=== PATIENT | female | born 1975 | race Caucasian/White ===

== ENCOUNTER 2018-11-10 08:00 | Inpatient (IN) | payer MEDICAID ==
[2018-11-10] MEDS ORDERED: ACETAMINOPHEN 500 MG TAB PO ONE (08:20)
[2018-11-10] MEDS ORDERED: ceFAZolin 2 GM/DEXTROSE 100 ML IV ONE (08:20)
[2018-11-10] MEDS ORDERED: morphINE SR 15 MG TAB PO ONE (08:20)
[2018-11-10] MEDS ORDERED: GABAPENTIN 300 MG CAP PO ONE (08:20)
[2018-11-10] MEDS ORDERED: LR 1,000 ML IV ONE (08:22)
[2018-11-10] MEDS ORDERED: LIDOCAINE 1% 2 ML INJ ONE (08:31)
[2018-11-10 09:07] LABS: PLATELET COUNT 210 10^3/uL (150-400)
[2018-11-10] MEDS ORDERED: LIDOCAINE 1% 2 ML INJ ID PRN (09:13)
[2018-11-10] MEDS ORDERED: BUPIVACAINE 0.25% 30 ML SDV ONE (10:09)
[2018-11-10] MEDS ORDERED: THROMBIN (BOVINE) 5,000 UNIT VIAL TP ONE (10:10)
[2018-11-10] MEDS ORDERED: BACITRACIN 50,000 UNITS/10 ML SYR IRR ONE (10:10)
[2018-11-10] MEDS ORDERED: EPINEPHrine 1 MG/ML INJ ONE (10:11)
[2018-11-10] MEDS ORDERED: CHLORHEXIDINE GLUC HIBICLENS 118 ML BTL TP ONE ×2 (10:13→13:35)
--- NOTE | 2018-11-10 10:55 | PDHPUP ---
History & Physical Update H&P update statement: This history and physical update is based on an assessment of the patient which was completed after admission or registration (within 24 hours), but prior to the surgery/procedure. H&P update: H&P reviewed & patient examined, no change in patient's condition since H&P completed
--- NOTE | 2018-11-10 11:04 | PDANEPAE ---
ANE Past Medical History - Cardiovascular History Hx Hypertension: No Hx Arrhythmias: Yes Hx Chest Pain: No Hx Coronary Artery / Peripheral Vascular Disease: No Hx CHF / Valvular Disease: No Hx Palpitations: No Cardiovascular History Comment: Hx of SVT - has not seen a ground crew chief for at least 3 years, quit caffeine 3 years ago and has not had any episodes since - Pulmonary History Hx COPD: No Hx Asthma/Reactive Airway Disease: No Hx Recent Upper Respiratory Infection: No Hx Oxygen in Use at Home: No Hx Sleep Apnea: No Sleep Apnea Screening Result - Last Documented: Negative - Neurologic History Hx Cerebrovascular Accident: No Hx Seizures: No Hx Dementia: No Neurologic History Comment: hx of migraines - Endocrine History Hx Diabetes: No - Renal History Hx Renal Disorders: No - Liver History Hx Hepatic Disorders: No - Neurological & Psychiatric Hx Hx Neurological and Psychiatric Disorders: Yes Neurological / Psychiatric History Comment: anxiety - Cancer History Hx Cancer: No - Congenital Disorder History Hx Congenital Disorders: No - GI History Hx Gastrointestinal Disorders: Yes Gastrointestinal History Comment: IBS. stomach ulcers. GERD - Other Health History Other Health History: wears glasses. chronic neck pain, dysphagia - Chronic Pain History Chronic Pain: Yes (neck) - Surgical History Prior Surgeries: ACDF C4-7, 2017. tubal ligation, 1999 ANE Review of Systems Review of Systems: - Exercise capacity METS (RN): 4 METS ANE Patient History - Allergies Allergies/Adverse Reactions: hydrocodone Allergy (Verified 10/20/18 10:34) Itching - Home Medications Home Medications: Dicyclomine [Bentyl 20 MG (*)] 20 mg PO BID 10/20/18 [Last Taken 11/09/18] Multivitamins [Multivitamin (*)] 1 each PO DAILY 10/20/18 [Last Taken 11/03/18] Ranitidine HCl [Zantac] 150 mg PO DAILY 10/20/18 [Last Taken 11/09/18] oxyCODONE IR [Oxycodone Ir (*)] 10 mg PO TID 10/20/18 [Last Taken 11/10/18] traMADol [Ultram 50 mg (*)] 50 - 100 mg PO TID 10/20/18 [Last Taken 11/09/18] traZODone [traZODone 150MG (*)] 300 mg PO HS 10/20/18 [Last Taken 11/08/18] - NPO status NPO Since - Liquids (Date): 11/10/18 NPO Since - Liquids (Time): 06:00 NPO Since - Solids (Date): 11/09/18 NPO Since - Solids (Time): 18:00 - Smoking Hx Smoking Status: Former smoker - Family Anes Hx Family Hx Anesthesia Complications: none ANE Labs/Vital Signs - Labs Result Diagrams: 11/10/18 08:53 11/10/18 08:53 - Vital Signs Blood Pressure: 88/55 Heart Rate: 95 Respiratory Rate: 17 O2 Sat (%): 98 Height: 170.18 cm Weight: 47.627 kg ANE Physical Exam - Airway Neck exam: decreased ROM Mallampati Score: Class 1 - ASA Status ASA Status: II ANE Anesthesia Plan Anesthesia Plan: general endotracheal anesthesia Specialized Airway: video laryngoscope
[2018-11-10] MEDS ORDERED: MIDAZOLAM 2 MG/2 ML VIAL ONE (11:18)
[2018-11-10] MEDS ORDERED: PROPOFOL/EMULSION 500 MG/50 ML BOTTLE IV ONE (11:19)
[2018-11-10] MEDS ORDERED: fentaNYL 100 MCG/2 ML INJ ONE ×3 (11:19→17:09)
[2018-11-10] MEDS ORDERED: PROPOFOL 200 MG/20 ML VIAL ONE ×2 (11:20→15:02)
[2018-11-10] MEDS ORDERED: ROCURONIUM 50 MG/5 ML VIAL ONE (11:22)
[2018-11-10] MEDS ORDERED: METOCLOPRAMIDE 10 MG/2 ML VIAL ONE (11:22)
[2018-11-10] MEDS ORDERED: ONDANSETRON 4 MG/2 ML VIAL ONE (11:22)
[2018-11-10] MEDS ORDERED: LIDO/EPI 1% **Not for Epidural 20 ML MDV ONE (11:58)
[2018-11-10] MEDS ORDERED: ePHEDrine SULFATE 25 MG/5 ML SYR ONE (13:26)
[2018-11-10] MEDS ORDERED: oxyCODONE IR 5 MG TAB PO SCH (16:00)
[2018-11-10] MEDS ORDERED: LACTULOSE 20 GM/30 ML UDCUP PO PRN (17:03)
[2018-11-10] MEDS ORDERED: PROMETHAZINE HCL 25 MG/ML INJ IVP PRN ×2 (17:03→17:07)
[2018-11-10] MEDS ORDERED: diphenhydrAMINE 25 MG CAP PO PRN (17:03)
[2018-11-10] MEDS ORDERED: NALOXONE HCL 0.4 MG/ML INJ IVP PRN ×2 (17:03→17:07)
[2018-11-10] MEDS ORDERED: ONDANSETRON DISINTEGRATING 4 MG TAB PO PRN (17:03)
[2018-11-10] MEDS ORDERED: ONDANSETRON 4 MG/2 ML VIAL IVP PRN ×2 (17:03→17:07)
[2018-11-10] MEDS ORDERED: POLYETHYLENE GLYCOL 3350 17 GM PKT PO PRN (17:03)
[2018-11-10] MEDS ORDERED: BISACODYL 10 MG SUPP PR PRN (17:03)
[2018-11-10] MEDS ORDERED: MAGNESIUM HYDROXIDE 30 ML UDCUP PO PRN (17:03)
[2018-11-10] MEDS ORDERED: oxyCODONE IR 5 MG TAB PO PRN (17:07)
[2018-11-10] MEDS ORDERED: LR 500 ML IV PRN (17:07)
[2018-11-10] MEDS ORDERED: DEXAMETHASONE 4 MG/ML VIAL IVP PRN (17:07)
[2018-11-10] MEDS ORDERED: MEPERIDINE 25 MG/0.5 ML AMP IVP PRN (17:07)
--- NOTE | 2018-11-10 17:08 | POSTANESTH ---
Post Anesthetic Evaluation Cardiovascular Status: Normal, Stable Respiratory Status: Normal, Stable Level of Consciousness/Mental Status: Can Participate in Eval Pain Control: Adequate, Prn Tx Ordered Nausea/Vomiting Control: Adequate, Prn Tx Ordered Complications Possibly Related to Anesthesia: None Noted
[2018-11-10] MEDS: fentaNYL 100 MCG/2 ML INJ IVP PRN ×3 (17:12→17:27)
[2018-11-10] MEDS ORDERED: NS 1,000 ML IV SCH (17:15)
[2018-11-10] MEDS ORDERED: HYDROmorphONE/DILAUDID 2 MG/ML INJ ONE (17:18)
[2018-11-10] MEDS: HYDROmorphONE/DILAUDID 2 MG/ML INJ IVP PRN ×5 (17:20→18:10)
[2018-11-10] MEDS ORDERED: DIAZEPAM 5 MG/ML 1 ML SYR ONE (17:33)
[2018-11-10] MEDS: DIAZEPAM 5 MG/ML 1 ML SYR IVP PRN ×2 (17:33→17:57)
--- NOTE | 2018-11-10 17:44 | POSTOPPROG ---
Post Op Note Date of Operation: 11/10/18 Surgeon: Angel Ramos Kennel Supervisor: Rochelle Oliva PA-C Pre-op Diagnosis: Pseudoarthrosis, cervicalgia, dysphagia Post-op Diagnosis: Pseudoarthrosis, cervicalgia, dysphagia Procedure: Removal of Anterior cervical plate, followed by C4-T1 intrumented fusion Inf/Abcess present in the surg proc area at time of surgery?: No Depth: Organ Space Complications: None observed Drains: Jace Oropeza (ASHER X 2 to full suction) SOAP Progress Note Assessment/Plan: Assessment: Plan: 11/10/18 17:41 S: Patient in PACU. Stable with expected neck pain and incisional pain and a sore throat. O: NAD, VSS Awake, alert, following commands Hard cervical collar in place No induration CHO x 4 BLE 5/5= Sensation intact to lt touch Anterior and posterior incisions c/d/i ASHER X2 A: 43 yo female sp removal of anterior cervical plate, followed by C4-T1 PSF for Pseudoarthrosis, cervicalgia, dysphagia P: -Admit to SDU for pain control issues- may need precedex, patient very opioid tolerant preop -Optimize pain management- Valium, Oxy, Tramodol- Dilaudid POLYMERIZATION HELPER if needed -Q4 hour neuro checks -ASHER X 2 to full suction -Remove catheter in am -PT/OT/FURNACE AND WASH EQUIPMENT OPERATOR -Hard collar at all times except to shower -DVT: TEDs, SCDs, Lovenox POD #2 -Seen by Dr. Ramos in PACU Objective: Vital Signs Temp Pulse Resp BP Pulse Ox 36.9 C 95 24 H 117/73 100 11/10/18 08:41 11/10/18 11:04 11/10/18 17:20 11/10/18 17:20 11/10/18 17:20 Laboratory Results 11/10/18 08:53 11/10/18 08:53
[2018-11-10] MEDS ORDERED: oxyCODONE IR 5 MG TAB ONE (17:48)
--- NOTE | 2018-11-10 18:25 | GOP ---
DATE OF OPERATION: 11/10/2018 SURGEON: Angel Ramos MD NEUROSURGEON: Angel Ramos MD. ANESTHESIA: General endotracheal. All neurophysiologic monitoring was stable throughout the case. PREOPERATIVE DIAGNOSIS: Status post C4-7 anterior cervical diskectomy and fusion with loose/broken h ardware and pseudoarthrosis at C4-5 and C6-7 with swallowing dysfunction. POSTOPERATIVE DIAGNOSIS: Status post C4-7 anterior cervical diskectomy and fusion with loose/broken hardware and pseudoarthrosis at C4-5 and C6-7 with swallowing dysfunction. PROCEDURE PERFORMED: Stage I: 1. Exploration of anterior spinal fusion. 2. Removal of anterior spinal instrumentation. Stage II. 1. C4-T1 posterior spinal fusion. 2. Posterior arthrodesis C3-4, 4-5, 5-6, 6-7, C7-T1. 3. Placement of pedicle screw fixation and lateral mass screws C4-C7. 4. Use of allograft, BMP and cancellous bone chips. 5. Use of O arm/Stealth stereotactic navigation for screw placement. 6. Intraoperative neurophysiologic monitoring, including somatosensory evoked potentials, motor evok ed potentials, and EMG. FINDINGS: Successful removal of hardware and posterior spinal fusion C4-T1. SPECIMENS: There were no specimens. ESTIMATED BLOOD LOSS: 100 cc. INDICATIONS: This is a 43-year-old woman who had previously had a C4-7 ACDF by another surgeon about 2 years ago. She has had significant neck pain since that time, and presented to my office with new imaging. This showed broken screws at C4 and C7 with loosening of the plate and pseudoarthrosis at C4-5 and C6-7. There was no clear foraminal disease within the spinal canal, but given her neck pain and this pseudoarthrosis as well as her significant swallowing dysfunction which was thought to be f rom the proud plate in the front, we elected to remove her plate and fuse her posteriorly C4-T1. I a sked Dr. Dias to help with the anterior portion of the procedure given the propensity for swallowi ng dysfunction and possible esophageal injury. DESCRIPTION OF PROCEDURE: After informed consent was obtained from the patient, the patient was brou ght to the operating room, was placed in a supine position on the operating table. A formal time-out was performed, identifying the patient by name, medical record number and date of . Preoperati ve antibiotics were given. The endotracheal tube was placed and general endotracheal anesthesia was smoothly induced. The patient's head was extended onto a horseshoe headrest and turned slightly to t he left side. A transverse incision was marked in a skin crease on the right side equal with her pre vious incision. 10 cc of 0.25% Marcaine with epinephrine infiltrated in the skin for hemostasis. Dr Geetha Dias then performed the exposure portion of the procedure where the skin incision was made. The subcutaneous tissues and platysma were opened and the avascular plane between the midline structures and the sternocleidomastoid was carefully dissected. The trachea and esophagus were retracted somew hat medially and a lot of scar tissue was visualized in the prevertebral space. This scar tissue was opened and clearly there was some inflammatory fluid due to the plate being loose. The scar tissue was carefully divided and the plate was clearly identified. Two of the screws, 1 at C5 and 1 at C6 w ere proud above the locking mechanism of the plate and these may have been causing some of the esopha geal problems that she was having. Carefully, the locking caps were loosened and the screws were rem queta. One of the screws at C4 and C7 each were broken and the tips were left within the vertebral kristina dy as I did not see any reason to todd after these. Once the screws were removed, the plate was loo se and the plate was removed completely. The wound was copiously irrigated using bacitracin irrigati on and some bipolar electrocautery was used to control all bleeders. At this point, there was minima l further oozing from the scar tissue. A 10-Paraguayan silastic drain was placed in the prevertebral spa ce. The platysma was closed using interrupted 3-0 Vicryl and the deep dermis was closed using interr upted 3-0 Vicryl. The skin was closed using Dermabond. Sterile dressings were placed. At this point, the drapes were removed and the head was placed in the Wood pin. Then we were pre pared for the 2nd stage of the procedure. The patient was turned into the prone position on the Jace table. All appropriate pressure points were padded and checked. The head and neck were kept in a neutral position and the posterior cervic al area was sterilized. This was then prepped and draped in the normal sterile fashion. A midline s kin incision was made down to the T1 spinous process and the subcutaneous tissues were dissected usin g monopolar electrocautery. The fascia was opened in the midline. The paraspinous muscles were take n down from the spinous processes and lamina from C4 down to T1. The lateral masses and the transver se process of T1 were completely exposed. At this point, a navigation frame was placed on the C7 spi nous process. An O-arm spin was obtained showing the relevant anatomy from C4-T1. Starting on the l eft side at C7, the pedicle entry points at C7 and T1 were identified and decorticated using the high -speed drill. All the lateral mass entry points were also identified to be in line with the C7 and T 1 screws. Once the entry points of the pedicles were identified, the drill was used to drill each pe dicle which was then tapped with a 3 mm tap. At C7, a 4.0 x 22 mm Medtronic infinity screw was place d under navigation and at T1, a 4.5 x 28 mm screw was placed again using navigation. The lateral mas s trajectories were then drilled on the right side using a cephalad and lateral trajectory, keeping a way from the vertebral artery. Bicortical screws were obtained. We then did the pedicle screws at C 7 on T1 on the right side, placing again a 4.0 x 22 mm screw at C7 and a 4.5 x 28 mm screw at T1. Us ing the same process, the cephalad and lateral trajectories for the lateral mass screws at C4, 5 and 6 were drilled and 3.5 x 14 mm screws were placed in each lateral mass. A 2nd O-arm spin was obtaine d to check the screw placement. All neurophysiologic monitoring remained stable. On inspection of t he 2nd O arm spin, the left-sided C7 screw was placed slightly laterally in the pedicle with a slight anterior breach. Although this appeared to be fairly solid, I did re position the screw more medial ly into the vertebral body to have better purchase. This also showed the right-sided C4 lateral mass screw was breaching into the joint with an extremely small lateral mass at that level. I removed th e screw and unfortunately, the lateral mass was small enough that there was really no other trajector y to place a lateral mass screw at that level. The pedicle was also too small to place a good pedicl e screw completely through the pedicle because the vertebral artery was slightly medially directed. I was able to drill into the proximal portion of the pedicle in line with the pedicle and we were the n able to place a 3.5 x 10 mm screw at this level, which got solid bone purchase. Another O arm spin was obtained again showing the screws to be in good placement without any breach of the canal or the vertebral artery. At this point, all the screw heads were aligned and on the left side a 60 mm deonte nium suly was placed and on the right side a 70 mm titanium suly was placed and these were locked in pl esa using the locking caps. The lateral masses were then completely decorticated and a combination o f BMP and allograft cancellous bone chips were used for posterolateral arthrodesis from C4-T1. After these were placed, we checked all the locking caps to be sure they were tightened to the recommended torque per the talent sourcer. The wound was copiously irrigated using bacitracin irrigation. A 10-F rench PTC drain was placed in the subfascial space. The fascia was closed using interrupted 0 Vicryl , the deep dermis was closed using interrupted 2-0 Vicryl. The skin was closed using a subcuticular 4-0 Monocryl. Steri-Strips were placed over the wound. Sterile dressings were placed. The patient was removed from the Wood pins. She was extubated in the operating room and was transferred to [facility] PACU in stable condition. There were no operative complications. I was scrubbed and present for the entire procedure. All sponge and needle counts were correct at the end of the case. CO SURGEON FOR STAGE I: Autumn Dias MD. AIRPORT OPERATIONS DUTY MANAGER FOR STAGE II: Rochelle Dickerson PA-C. FLUIDS AND URINE OUTPUT: Per the anesthesia record. DRAINS: Prevertebral and subfascial ASHER. /[id number]/MODL
[2018-11-10] MEDS: HYDROmorphONE/DILAUDID 1 MG/ML INJ IVP PRN (19:04)
[2018-11-10] MEDS: traMADol 50 MG TAB PO SCH ×2 (19:17→22:50)
[2018-11-10] MEDS: HYDROmorphONE/DILAUDID 6 MG/30 ML PCA IV PRN (19:18)
[2018-11-10] MEDS: DIAZEPAM 5 MG TAB PO PRN (19:18)
[2018-11-10] MEDS: oxyCODONE IR 5 MG TAB PO SCH (21:10)
[2018-11-10] MEDS: FAMOTIDINE 20 MG TAB PO SCH (21:11)
[2018-11-10] MEDS: ACETAMINOPHEN 500 MG TAB PO SCH (21:11)
[2018-11-10] MEDS: SENNOSIDES/DOCUSATE SODIUM TAB PO SCH (21:12)
[2018-11-10] MEDS: DICYCLOMINE 20 MG TAB PO SCH (21:54)
[2018-11-10] MEDS: POLYETHYLENE GLYCOL 3350 17 GM PKT PO SCH (22:51)
[2018-11-10] MEDS ORDERED: DEXMEDETOMIDINE HCL 400 MCG in NS 100 ML IV SCH (23:30)
[2018-11-11] MEDS: HYDROmorphONE/DILAUDID 6 MG/30 ML PCA IV PRN ×3 (01:25→21:39)
[2018-11-11] MEDS: DIAZEPAM 5 MG TAB PO PRN ×2 (02:41→16:11)
[2018-11-11] MEDS: ACETAMINOPHEN 500 MG TAB PO SCH ×3 (05:33→21:43)
[2018-11-11] MEDS: HYDROmorphONE/DILAUDID 1 MG/ML INJ IVP PRN (08:42)
[2018-11-11] MEDS ORDERED: FAMOTIDINE 20 MG TAB PO SCH (09:00)
--- NOTE | 2018-11-11 09:16 | NEUSURGPN ---
Assessment/Plan: Assessment: Plan: 11/10/18 17:41 S: Doing ok, has a lot of posterior neck pain and a sore throat. Able to swallow water ok but has not eaten anything solid yet. O: NAD, VSS Awake, alert, following commands Hard cervical collar in place No induration CHO x 4 BLE 5/5= Sensation intact to lt touch Anterior and posterior incisions c/d/i ASHER X2- anterior 50, posterior 130 output A: 43 yo female POD #1 sp removal of anterior cervical plate, followed by C4-T1 PSF for Pseudoarthrosis, cervicalgia, dysphagia P: -Neuro: OVerall doing ok, BP soft but asymptomatic. Ok to transfer to floor -Optimize pain management- Valium, Oxy, will DC PRIVATE SECURITY GUARD and transition to oral dilaudid if needed -Q4 hour neuro checks -ASHER X 2 to full suction- will remove anterior ASHER today -Remove catheter in am -PT/OT/BUNG DRIVER -Hard collar at all times except to shower -DVT: TEDs, SCDs, Lovenox POD #2 -Seen by Dr. Ramos as well Catheter Insertion Date: 11/10/18 - Physician Discussed Patient with Dr.: Ramos Patient Seen by : Rachel Neurosurgery Physical Exam - Vitals, I&O, Labs I and O 11/10/18 11/11/18 11/12/18 05:59 05:59 05:59 Intake Total 4023 Output Total 3015 Balance 1008 Weight 47.627 kg Intake: Oral (ml) 400 IV Intake (ml) 3596 IV Infused (ml) 27 Dexmedetomidine HCl 400 27 mcg In Ns 100 ml @ Per Protocol IV CONT LYNDON Rx#: [id number] Output: Urine (ml) 2700 Catheter 2700 Estimated Blood Loss (ml) 100 ASHER Drain Output (ml) 215 #1 Anterior Neck Jace 50 Oropeza #2 Posterior Neck Jace 165 Oropeza Vital Signs Temp Pulse Resp BP Pulse Ox 37.3 C 79 13 85/56 L 100 11/11/18 07:42 11/11/18 07:42 11/11/18 07:42 11/11/18 07:42 11/11/18 07:42 Laboratory Results 11/11/18 05:10 11/10/18 08:53 ICD10 Worksheet Patient Problems: Problems Problem Status Onset Pseudoarthrosis of cervical spine Acute - ICD10 Problem Qualifiers (1) Pseudoarthrosis of cervical spine
[2018-11-11] MEDS: traMADol 50 MG TAB PO SCH ×2 (09:25→15:17)
[2018-11-11] MEDS: FAMOTIDINE 20 MG TAB PO SCH ×2 (09:25→21:44)
[2018-11-11] MEDS: POLYETHYLENE GLYCOL 3350 17 GM PKT PO SCH ×3 (09:26→21:45)
[2018-11-11] MEDS: DICYCLOMINE 20 MG TAB PO SCH ×2 (09:26→21:44)
[2018-11-11] MEDS: oxyCODONE IR 5 MG TAB PO SCH ×3 (09:26→21:45)
[2018-11-11] MEDS: SENNOSIDES/DOCUSATE SODIUM TAB PO SCH ×2 (09:26→21:43)
[2018-11-11] MEDS: MULTIVITAMINS 1 EACH TAB PO SCH (09:26)
--- NOTE | 2018-11-11 10:57 | PDMN ---
Medical Necessity Medical necessity: [facility] S330 Cervical fusion posterior: 43 yo s/p C4-T1 posterior and anterior cervical fusion, [facility] only
[2018-11-11] MEDS: HYDROmorphONE/DILAUDID 2 MG TAB PO PRN (12:05)
[2018-11-11] MEDS ORDERED: traMADol 50 MG TAB PO PRN (17:00)
[2018-11-12] MEDS: ACETAMINOPHEN 500 MG TAB PO SCH ×3 (05:26→21:08)
[2018-11-12] MEDS: HYDROmorphONE/DILAUDID 2 MG TAB PO PRN ×2 (07:22→11:34)
[2018-11-12] MEDS: DIAZEPAM 5 MG TAB PO PRN (07:42)
--- NOTE | 2018-11-12 08:11 | NEUSURGPN ---
Date of Surgery: 11/10/18 Post Op Day: 2 Assessment/Plan: 43 yo female POD #2 sp removal of anterior cervical plate, followed by C4-T1 PSF for Pseudoarthrosis, cervicalgia, dysphagia P: -Neuro stable -Pain control, off of MOLDING SUPERVISOR -Q4 hour neuro checks -ASHER X 1 posterior: continue, Anterior ASHER removed on 11/11 -PT/OT/WET PROCESS OPERATOR evals pending -Hard collar at all times except to shower -DVT: TEDs, SCDs, Lovenox POD #2 -Discharge planning Discussed with Dr. Ramos. Subjective: Having burning pain at the top of the shoulders and achiness in the arms. Objective: Awake. Alert. PERRL. EOMI Muscle strength full at 5/5 Incisions with dressings c/d/i Catheter Insertion Date: 11/10/18 - Physician Discussed Patient with : Rachel Neurosurgery Physical Exam - Vitals, I&O, Labs I and O 11/11/18 11/12/18 11/13/18 05:59 05:59 05:59 Intake Total 4023 1050 Output Total 3015 45 Balance 1008 1005 Weight 47.627 kg Intake: Oral (ml) 400 550 IV Intake (ml) 3596 IV Infused (ml) 27 500 Dexmedetomidine HCl 400 27 mcg In Ns 100 ml @ Per Protocol IV CONT LYNDON Rx#: [id number] Ns 1,000 ml @ 75 mls/hr 500 IV CONT LYNDON Rx#: [id number] Output: Urine (ml) 2700 Catheter 2700 Estimated Blood Loss (ml) 100 ASHER Drain Output (ml) 215 45 #1 Anterior Neck Jace 50 5 Oropeza #2 Posterior Neck Jace 165 40 Oropeza Other: Number of Voids Toilet 1 Vital Signs Temp Pulse Resp BP Pulse Ox 37.4 C 102 H 17 117/65 97 11/12/18 07:19 11/12/18 07:19 11/12/18 07:19 11/12/18 07:19 11/12/18 07:19 Laboratory Results 11/11/18 05:10 11/10/18 08:53 ICD10 Worksheet Patient Problems: Problems Problem Status Onset Pseudoarthrosis of cervical spine Acute
[2018-11-12] MEDS: SENNOSIDES/DOCUSATE SODIUM TAB PO SCH ×2 (09:21→21:08)
[2018-11-12] MEDS: ENOXAPARIN 40 MG/0.4 ML SYR SC SCH (09:21)
[2018-11-12] MEDS: MULTIVITAMINS 1 EACH TAB PO SCH (09:22)
[2018-11-12] MEDS: oxyCODONE IR 5 MG TAB PO SCH ×3 (09:22→21:09)
[2018-11-12] MEDS: POLYETHYLENE GLYCOL 3350 17 GM PKT PO SCH ×3 (09:22→21:08)
[2018-11-12] MEDS: DICYCLOMINE 20 MG TAB PO SCH ×2 (09:22→21:08)
[2018-11-12] MEDS: FAMOTIDINE 20 MG TAB PO SCH ×2 (09:22→21:08)
--- NOTE | 2018-11-12 16:53 | ASMTCMCOM ---
CM Note CM Note Notes: Pt had planned spinal surgery, resides with adult children. PT rec home/outpatient, LANDSCAPING MANAGER rec home. Anticipate pt will d/c independent when medically stable. CM to follow pt progress. Date Signed: 11/12/2018 04:53 PM Electronically Signed By:LAST Mtathews
[2018-11-13] MEDS: HYDROmorphONE/DILAUDID 2 MG TAB PO PRN ×2 (02:53→13:12)
[2018-11-13] MEDS: DIAZEPAM 5 MG TAB PO PRN ×2 (02:54→21:07)
[2018-11-13] MEDS: ACETAMINOPHEN 500 MG TAB PO SCH ×3 (05:53→21:02)
[2018-11-13] MEDS: MULTIVITAMINS 1 EACH TAB PO SCH (08:50)
[2018-11-13] MEDS: DICYCLOMINE 20 MG TAB PO SCH ×2 (08:50→21:04)
[2018-11-13] MEDS: SENNOSIDES/DOCUSATE SODIUM TAB PO SCH ×2 (08:50→21:03)
[2018-11-13] MEDS: oxyCODONE IR 5 MG TAB PO SCH ×3 (08:50→21:10)
[2018-11-13] MEDS: FAMOTIDINE 20 MG TAB PO SCH ×2 (08:50→21:03)
[2018-11-13] MEDS: ENOXAPARIN 40 MG/0.4 ML SYR SC SCH (08:51)
[2018-11-13] MEDS: POLYETHYLENE GLYCOL 3350 17 GM PKT PO SCH ×3 (09:51→21:04)
--- NOTE | 2018-11-13 10:56 | SOAPPROG ---
SOAP Progress Note Assessment/Plan: Assessment: Assessment/Plan: 43 yo female POD #3 sp removal of anterior cervical plate, followed by C4-T1 PSF for Pseudoarthrosis, cervicalgia, dysphagia. Doing better. Pain controlled. High narcotic tolerance P: -Neuro stable -Q4 hour neuro checks -PT/OT/METROLOGY MANAGER -Hard collar at all times except to shower -DVT: TEDs, SCDs, Lovenox POD #2 -Discharge planning Subjective: Having burning pain at the top of the shoulders and achiness in the left arm which is chronic and. Objective: Awake. Alert. PERRL. EOMI Muscle strength full at 5/5 Incisions with dressings c/d/i x 2 11/13/18 10:53 Subjective: Awake, alert, pain controlled. No overnight issues. Tolerating soft texture diet. Ongoing burning pain in top of shoulders. Objective: Vital Signs Temp Pulse Resp BP Pulse Ox 36.9 C 133 H 14 100/63 81 L 11/13/18 07:30 11/13/18 08:53 11/13/18 07:30 11/13/18 07:30 11/13/18 09:00 Laboratory Results 11/11/18 05:10 11/10/18 08:53 11/12/18 11/13/18 11/14/18 05:59 05:59 05:59 Intake Total 1050 2250 Output Total 45 Balance 1005 2250 Neuro: CHO, sens +Lt follows commands Post op xrays show well positioned hardware. ICD10 Worksheet Patient Problems: Problems Problem Status Onset Pseudoarthrosis of cervical spine Acute
--- NOTE | 2018-11-13 11:24 | PDHOMEO2F ---
Home Oxygen Face to Face Home Orders: I certify that a physician or a nurse practitioner or physician's assistant branch operations manager has had a [id number] encounter with this patient on the date of this order due to the diagnosis listed, which relates to the primary reason the patient requires home oxygen. Alternative treatments have been tried, or considered, and deemed ineffective. It is anticipated that supplemental oxygen will result in improvement with treatment. Home oxygen qualifying diagnosis: post op hypoxemia SpO2 on room air (%): 85 Frequency of home oxygen needed: continuous Home oxygen liters per minute: 1 Home oxygen delivery device: nasal cannula Concentrator: No E-tanks for mobility and back up: Yes If ordering portable O2, is the patient mobile in the home?: Yes I certify that, based on these findings, the home oxygen is medically necessary for this patient for the following length of time. Length of time home oxygen needed: 1 month
[2018-11-14] MEDS: HYDROmorphONE/DILAUDID 2 MG TAB PO PRN ×3 (00:55→13:00)
[2018-11-14] MEDS: DIAZEPAM 5 MG TAB PO PRN ×2 (04:14→13:00)
[2018-11-14] MEDS: ACETAMINOPHEN 500 MG TAB PO SCH ×2 (05:38→12:59)
[2018-11-14 07:43] VITALS: BP 92/60
[2018-11-14] MEDS: oxyCODONE IR 5 MG TAB PO SCH (09:14)
[2018-11-14] MEDS: SENNOSIDES/DOCUSATE SODIUM TAB PO SCH (09:17)
[2018-11-14] MEDS: DICYCLOMINE 20 MG TAB PO SCH (09:18)
[2018-11-14] MEDS: MULTIVITAMINS 1 EACH TAB PO SCH (09:18)
[2018-11-14] MEDS: FAMOTIDINE 20 MG TAB PO SCH (09:18)
[2018-11-14] MEDS: ENOXAPARIN 40 MG/0.4 ML SYR SC SCH (09:19)
[2018-11-14] MEDS: POLYETHYLENE GLYCOL 3350 17 GM PKT PO SCH (09:19)
--- NOTE | 2018-11-14 09:22 | SOAPPROG ---
SOAP Progress Note Assessment/Plan: Assessment: Assessment/Plan: 43 yo female POD #4 sp removal of anterior cervical plate, followed by C4-T1 PSF for Pseudoarthrosis, cervicalgia, dysphagia. Doing better. Pain controlled. High narcotic tolerance. Pt still dropping into upper 80's when ambulating. Currently 94% on room air in her chair. RN encouraging IS She refuses to pay out of pocket for home Oxygen. P: -Neuro stable -PT/OT/CORPORATE TREASURY ANALYST. swallowing fine this AM -Hard collar at all times except to shower -DVT: TEDs, SCDs, on Lovenox -Discharge planning Subjective: In bedside chair. Pain controlled. Awake and alert. Objective: Awake. Alert. PERRL. EOMI Muscle strength full at 5/5 Incisions with dressings c/d/i x 2 11/14/18 09:21 11/14/18 09:22 Objective: Vital Signs Temp Pulse Resp BP Pulse Ox 36.6 C 98 16 92/60 L 94 11/14/18 07:42 11/14/18 07:42 11/14/18 07:42 11/14/18 07:42 11/14/18 07:42 Laboratory Results 11/11/18 05:10 11/10/18 08:53 11/13/18 11/14/18 11/15/18 05:59 05:59 05:59 Intake Total 2250 0 Balance 2250 0 ICD10 Worksheet Patient Problems: Problems Problem Status Onset Pseudoarthrosis of cervical spine Acute
--- NOTE | 2018-11-14 13:54 | ASDISCHSUM ---
Discharge Information Plan Status:Home with No Needs Medically Cleared to Leave: Discharge Date: CM D/C Disposition:Home, Routine, Self-Care ADT D/C Disposition:Home, Routine, Self-Care Projected Discharge Date: Transportation at D/C: Discharge Delay Reason: Follow-Up Date: Discharge Slot: Final Diagnosis: Placement Information Patient Contact Information Contact Name:[place] Relationship:Other Address: Home Phone: City: Alternate Phone: State/Zip Code: Email: Financial Information Financial Class:Medicaid Primary Plan Desc:[employer] [place] [place] Primary Plan Number:[id number] Secondary Plan Desc: Secondary Plan Number: Assessment Information LACE LACE Length of stay for Answers: 4-6 days current admission Acuity / Level of Answers: Yes Care: Did the patient have an inpatient admission? Comorbidities - select Answers: Opioid dependence all that apply / Chronic pain Other Notes: Hx of SVT # of Emergency department Answers: 0 visits in the last 6 months Social determinants Answers: Mental health diagnosis (anxiety, depression, pers onality disorders, etc.) Score: 15 Date Signed: 11/14/2018 01:53 PM Electronically Signed By:GAYATRI Wahl [facility] CM Progress Note CM Note CM Note Notes: Pt had planned spinal surgery, resides with adult children. PT rec home/outpatient, CENTRIFUGAL SEPARATOR rec home. Anticipate pt will d/c independent when medically stable. CM to follow pt progress. Date Signed: 11/12/2018 04:53 PM Electronically Signed By:LAST Matthews Case Management Discharge Plan Note Case Management Discharge Discharge Order Complete? Answers: Yes Patient to Obtain Answers: via Family Medications Transportation Arranged Answers: Family/Friends Discharge Comments Notes: Pt being discharged with home O2. No CM needs identified. Pt being discharged independently. Date Signed: 11/14/2018 01:52 PM Electronically Signed By:GAYATRI Wahl Intervention Information
== END 2018-11-14 14:41 | disposition home or self-care (01) | DRG 850 ==
LOC: F3N 08:00 → F2N 18:03 → F3N 11-11 15:30
PROVIDERS: ADMIT Neurological Surgery; ATTEND Neurological Surgery
PROC: 0RG20AJ Fusion of 2 or more Cervical Vertebral Joints with Interbody Fusion Device, Posterior Approach, Anterior Column, Open Approach (ICD-10-PCS; principal; 2018-11-10 10:30)
PROC: 0RG4071 Fusion of Cervicothoracic Vertebral Joint with Autologous Tissue Substitute, Posterior Approach, Posterior Column, Open Approach (ICD-10-PCS; principal; 2018-11-10 10:30)
PROC: 0RP10AZ Removal of Interbody Fusion Device from Cervical Vertebral Joint, Open Approach (ICD-10-PCS; principal; 2018-11-10 10:30)
PROC: 4A1004G Monitoring of Central Nervous Electrical Activity, Intraoperative, Open Approach (ICD-10-PCS; principal; 2018-11-10 10:30)
PROC: 0RG2071 Fusion of 2 or more Cervical Vertebral Joints with Autologous Tissue Substitute, Posterior Approach, Posterior Column, Open Approach (ICD-10-PCS; principal; 2018-11-10 10:30)
PROC: 0RG40AJ Fusion of Cervicothoracic Vertebral Joint with Interbody Fusion Device, Posterior Approach, Anterior Column, Open Approach (ICD-10-PCS; principal; 2018-11-10 10:30)
DX: M96.0 Pseudarthrosis after fusion or arthrodesis (principal); R13.10 Dysphagia, unspecified; T84.498A Other mechanical complication of other internal orthopedic devices, implants and grafts, initial encounter; R49.0 Dysphonia; K21.9 Gastro-esophageal reflux disease without esophagitis; G89.4 Chronic pain syndrome
CPT/HCPCS: 92526-GN; 92610-GN; 97116-GP; 97161-GP; 97165-GO; 97530-GP; 97535-GO; C1713; C1762; J0171; J0690; J1170; J1650; J2250; J2405; J2704; J2765; J3010; J3360